=== PATIENT | female | born 1990 | race African-American/Black ===

== ENCOUNTER 2018-01-07 21:59 | Emergency (ER) | payer MEDICAID, OTHER ==
[~2018-01-07] VITALS: Ht 170.2 cm; Wt 48.0 kg
[2018-01-07 22:07] VITALS: BP 133/77
[2018-01-08] MEDS ORDERED: ACETAMINOPHEN WITH CODEINE 300/30MG TABLET PO ONE
[2018-01-08] MEDS ORDERED: TETANUS, DIPHTHERIA, PERTUSSIS VAC/PF 0.5ML (>7YR OLD) IM ONE
[2018-01-08] MEDS ORDERED: LORAZEPAM 0.5MG TABLET PO ONE (00:15)
== END 2018-01-08 02:00 | disposition home or self-care (01) ==
LOC: ER 21:59
DX: S61.211A Laceration without foreign body of left index finger without damage to nail, initial encounter (principal); D64.9 Anemia, unspecified; M79.7 Fibromyalgia; M32.9 Systemic lupus erythematosus, unspecified; Z88.8 Allergy status to other drugs, medicaments and biological substances; W45.8XXA Other foreign body or object entering through skin, initial encounter; Y93.89 Activity, other specified; Y92.89 Other specified places as the place of occurrence of the external cause; Y99.8 Other external cause status
CPT/HCPCS: 90471; 90715; 99283